=== PATIENT | male | born 1995 | race Caucasian/White ===

== ENCOUNTER 2020-11-27 13:10 | Emergency (ER) | payer MEDICAID, SELFPAY ==
[2020-11-27 13:25] VITALS: BP 118/77; PULSE 107; RESP 16; TEMP 37.1; O2SAT 97; BMI 22.8
--- NOTE | 2020-11-27 13:49 | ED.URI ---
HPI - URI/Sore Throat General Chief Complaint: General Medical Stated Complaint: EAR INFECTION Time Seen by Provider: 11/27/20 13:30 Source: patient Mode of arrival: ambulatory Limitations: no limitations History of Present Illness HPI Narrative: 25-year-old male presenting to the ED with his father with 2 separate complaints the 1st complaint is left ear pain and intermittent headaches for the past 3 days worse today with drainage noted to the left ear. He also is interested in detox. He reports that he normally does heroin approximately 10 bags daily where he sniffs the heroin. He also reports that he occasionally uses Percocet and cocaine when he has money to purchase this. He reports in the past he has used substances although no other substances recently. Denies any SI/HI/auditory or visual hallucinations or thoughts of self injury. Denies any fevers, chills, dizziness, neck pain/stiffness, cough, sore throat, trouble swallowing or breathing, chest pain or shortness of breath, nausea/vomiting/diarrhea or constipation, abdominal pain or any rashes or recent travel or sick contacts. MD elicited complaint: other (Ear pain) Onset (ago): day(s) (Three days) Consistency: constant and progressively worsening Severity: moderate Description of mucous: clear, watery and yellow Able to tolerate fluids by mouth: Yes Exacerbating factors: nothing Relieving factors: nothing Associated symptoms: headache Treatments prior to arrival: none Related Data Previous Rx's Medication Instructions Recorded amoxicillin 875 mg-potassium 1 tab PO BID 10 Days #20 tab 11/27/20 clavulanate 125 mg tablet (Augmentin) ciprofloxacin 0.3 %-dexamethasone 4 drp OTIC (EARS) BID 7 Days #7.5 11/27/20 0.1 % ear drops,suspension ml (Ciprodex) ondansetron HCl 4 mg tablet 4 mg PO Q8H PRN #14 tab 11/27/20 (Zofran) Allergies Allergy/AdvReac Type Severity Reaction Status Date / Time No Known Allergies Allergy Unverified 12/07/19 16:36 [No Known Allergies*] Review of Systems Review of Systems: Constitutional : No Weight loss, No Fever, No Chills, No Night Sweats, No Fatigue, No Malaise ENT/Mouth : Positive left-sided ear pain/drainage, No Hearing loss, No Nasal Congestion, No Sinus Pain, No Hoarseness, No sore throat, No Rhinorrhea, No Swallowing Difficulty Eyes: No Eye Pain, No Swelling, No Redness, No Foreign Body, No Discharge, No Vision Changes Cardiovascular : No Chest Pain, No SOB, No Dyspnea on Exertion, No Orthopnea, No Edema, No Palpitations Respiratory : No Cough, No Sputum, No Wheezing, No Smoke Exposure, No Dyspnea Gastrointestinal : No Nausea, No Vomiting, No Diarrhea, No Constipation, No abdominal Pain, No Hematochezia, No Melena Genitourinary : no irregular bleeding, No Dysuria, No Urinary Frequency, No Hematuria, No Urinary Incontinence, No Urgency, No Flank Pain, No Urinary Flow Changes, No Hesitancy Musculoskeletal : No joint pain, No Myalgias, No Joint Swelling Skin : No Skin Lesions, No rash Neuro : No Weakness, No Numbness, No Paresthesias, No Loss of Consciousness, No Dizziness, No Headache Psych : Positive substance abuse, No Anxiety/Panic, No Depression, No SI/HI/AH/VH, No Social Issues, Heme/Lymph: No Bruising, No Bleeding,No Lymphadenopathy Endocrine : No Polyuria, No Polydipsia, No Temperature Intolerance Yes all other systems are reviewed and are negative [facility] Past Medical History Attestation statement: The following information was validated with the patient. Medical History (Updated 11/27/20 @ 14:53 by PATRICIA Gates) Collapsed lung Opioid abuse Social History Social History Advance Directives: No Advance Directives Information Provided: No Physical Exam Vital Signs: Vital Signs: Last Vital Signs Temp 98.7 F 11/27/20 13:25 Pulse 107 H 11/27/20 13:25 Resp 16 11/27/20 13:25 BP 118/77 11/27/20 13:25 Pulse Ox 97 11/27/20 13:25 Body Mass Index 22.8 vital signs have been reviewed as normal and appeared to be correct. Blood pressure normal. Heart rate tachycardic at 107. Respiration rate normal. Temperature normal. Oxygen saturation normal. Appearance: Alert. Oriented X3. No acute distress. Head: Normal external exam. Normocephalic. Atraumatic. Eyes: PERRLA. EOMI. Conjunctiva and sclera normal. Eyelids normal. ENT: Patient with TTP to tragus and pinna along with erythema/edema and narrowing along with purulent discharge to the external ear canal consistent with otitis externa. Unable to see tympanic membrane. Right external ear canal within normal limits. Right tympanic membrane within normal limits. Pharynx normal. Uvula midline. Moist mucous membranes. No trismus noted. No drooling noted. No muffled voice noted. Neck: Normal inspection. Neck supple. FROM. No adenopathy. Thyroid Normal. No meningeal signs. No neck mass noted. CVS: Normal heart rate and rhythm. Heart sound normal. Pulses normal throughout. No murmurs/rales/gallops. Respiratory: No respiratory distress. Painless inspiration. Breath sounds normal. No wheezes/rales/rhonchi noted. Chest nontender. No accessory muscle usage noted or decreased air movement noted. Abdomen: Soft and nontender. Bowel sounds normal in all 4 quadrants. No distention noted. No organomegaly noted. No visible injury noted. Back: No CVA tenderness. Full range of motion noted. No rashes/lesion/induration/fluctuance or signs of infection noted. Skin: Skin warm and dry. Normal skin color. Normal skin turgor. No rashes/lesions/lacerations noted. Extremities: No lower extremity edema. Extremities exhibit normal range of motion. Extremities nontender. Neuro: Oriented X 3. No motor deficit. No sensory deficit. Reflexes normal. Normal steady gait. No focal neuro deficits noted. Course Course Course Narrative: 14pm 25-year-old male presenting to the ED with complaints of left-sided ear pain/purulent drainage over the past few days worse today. Also requesting detox for sniffing heroin approximately 10 bags daily and intermittently uses Percocets and cocaine as well. Denies any other drug usage. Denies any SI/HI/auditory visual sensations thoughts of self-injury. Patient is noted to have left-sided otitis externa. Right external ear canal within normal limits. Posterior pharynx within normal limits. Lungs CTA. CV RRR. Therefore patient will be treated for otitis externa. Patient is placed in physician observation at this time because the patient needs more time to be evaluated by the care team for possible detox placement. Will continue to monitor. Reevaluation(s) Reevaluation #1: The assistant men's soccer coach Yonathan from the CARE team was working on finding detox placement for the patient although patient felt like he was going into withdrawal despite being given Zofran and Atarax and he left although family still at bedside and both family and patient are still very interested in detox therefore the detox bed search will continue as an outpatient. Time: 15:23 MDM - URI/Sore Throat Medical Records Attestation: I reviewed the patient's medical records. Discharge Plan Discharge Clinical Impression: Otitis externa, Active substance abuse, Desire for detoxification Patient Disposition: Home, Self-Care Instructions: Otitis Externa (ED) Prescriptions: New ondansetron HCl [Zofran] 4 mg tablet 4 mg PO Q8H PRN (Reason: nausea and vomiting) Qty: 14 RF: 0 amoxicillin-pot clavulanate [Augmentin] 875-125 mg tablet 1 tab PO BID 10 Days Qty: 20 RF: 0 ciprofloxacin-dexamethasone [Ciprodex] 0.3-0.1 % drops,suspension 4 drp otic (ears) BID 7 Days Qty: 7.5 RF: 1 Referrals: Physician,Unknown [Primary Care Provider] - 2 days (your pcp) Print Language: Yakut
[2020-11-27] MEDS: Ondansetron ODT 4 MG TAB.RAPDIS TRANSLINGU (14:45)
[2020-11-27] MEDS: Amoxicillin/Potassium Clav 875 MG TABLET PO (14:52)
[2020-11-27] MEDS: hydrOXYzine HCL 50 MG TABLET PO (14:52)
[2020-11-27] MEDS: NeoMYCIN/Polymyxin/HC Otic Sol BOTTLE 4 DROP EAR-LEFT (15:09)
--- NOTE | 2020-11-27 15:34 | MHC.RECOVSUP ---
Recovery Support note: Patient is a 25 year old Palauan speaking male who presented to [facility] ED due to an ear infection. While being evaluated, patient expressed interest in going to ATS for his opioid use disorder. This editorial writer met with patient to discuss recovery supports and treatment options. Patient reports using 10 bags a day nasally and states he is uninsured. Discussed ATS and MOUD with patient. Patient accepted information on [facility] and ATS facilities in [place]. Patient was initially willing to be referred to ATS however left the hospital after referrals were made. Discussed section 35 with patient's uncle. Discussed case with patient's ED provider.
[2020-11-27 15:36] LABS: COVID-19 Test Negative (Negative); IDNOW Serial# 9DD0AD1C
== END 2020-11-27 15:37 | disposition home or self-care (01) ==
PROVIDERS: Physician Assistant Medical; Emergency Provider Emergency Medicine
DX: H60.92 Unspecified otitis externa, left ear (principal); H92.02 Otalgia, left ear; F14.10 Cocaine abuse, uncomplicated; F11.10 Opioid abuse, uncomplicated; Z20.822 Contact with and (suspected) exposure to COVID-19; Z79.899 Other long term (current) drug therapy
CPT/HCPCS: 36415; 87635; 99283

== ENCOUNTER 2020-12-14 04:59 | Emergency (ER) | payer MEDICAID, SELFPAY ==
[2020-12-14 05:27] VITALS: BP 116/72; PULSE 66; RESP 15; TEMP 37; O2SAT 98; BMI 17.4
[2020-12-14 05:35] VITALS: BP 116/72; PULSE 66; RESP 18; TEMP 37; O2SAT 98
[2020-12-14 05:56] LABS: MANUAL DIFF FLAG NO
[2020-12-14 05:57] LABS: Basophils Absolute Auto 0.1 X10*3/uL (0.0-0.2); Basophils Percent Auto 0.5 % (0-2); Eosinophils Absolute Auto 0.2 X10*3/uL (0.0-0.4); Eosinophils Percent Auto 1.4 % (0-4); Hematocrit 45.3 % (42-52); Hemoglobin 15.5 g/dl (14.0-18.0); Imm Gran Abs Auto 0.04 X10*3/uL (0.00-0.03); Imm Gran Pct Auto 0.3 % (0.0-0.4); Lymphocytes Absolute Auto 1.6 X10*3/uL (1.2-4.9); Lymphocytes Percent Auto 12.5 % (20-40); Mean Corpuscular HGB Conc 34.2 g/dl (31.0-36.0); Mean Corpuscular Hemoglobin 30.9 pg (27.0-33.0); Mean Corpuscular Volume 90.2 fL (80-98); Mean Platelet Volume 11.5 fL (9.4-12.4); Monocytes Absolute Auto 0.8 X10*3/uL (0.1-1.2); Monocytes Percent Auto 5.9 % (2-11); Neutrophils Absolute Auto 10.3 X10*3/uL (2.0-8.3); Neutrophils Percent Auto 79.4 % (45-73); Platelet Count 225 X10*3/uL (160-400); Red Blood Count 5.02 X10*6/uL (4.60-5.80); Red Cell Distribution Width 12.2 % (11.0-16.0)
[2020-12-14 06:11] LABS: COVID-19 Test Negative (Negative)
[2020-12-14 06:13] LABS: Alanine Aminotransferase 23 U/L (0-40); Albumin Level 4.9 g/dL (3.5-5.0); Alkaline Phosphatase 74 U/L (39-117); Anion Gap 12 (12-20); Aspartate Amino Transferase 16 U/L (5-37); Bilirubin Total 0.8 mg/dL (0.0-1.0); Blood Urea Nitrogen 13 mg/dL (9-16); Calcium 10.2 mg/dL (8.4-10.2); Carbon Dioxide 26 mmol/L (22-29); Chloride 108 mmol/L (96-108); Creatinine Clr Calc Pharmacy 102.8; Estimated Glomerular Filt Rate > 60; Glucose Random 77 mg/dL (60-115); Sodium 141 mmol/L (135-145); Total Protein 7.6 g/dL (6.5-8.0)
[2020-12-14 07:34] LABS: Appearance Urine CLEAR; Color Urine YELLOW; Glucose Urine UA NEG (NEG); Leukocyte Esterase Urine NEG (NEG); Nitrite Urine NEG (NEG); PH 6.5 (5.0-8.0); UACC Culture Trigger NO; Urine Blood TRACE (NEG); Urine Ketones NEG (NEG); Urine Protein NEG (NEG-TRACE)
[2020-12-14 07:44] VITALS: BP 109/60; PULSE 61; RESP 16; TEMP 37.2; O2SAT 99
[2020-12-14 07:48] LABS: Amphetamine Screen Urine Not Detected (Not Detect); Barbiturates, Urine Not Detected (Not Detect); Benzodiazepines Screen Urine Not Detected (Not Detect); Cannabinoid Screen Urine Not Detected (Not Detect); Cocaine Screen Urine Not Detected (Not Detect); Fentanyl, urine POSITIVE (Not Detect); Opiate Screen Urine Not Detected (Not Detect); Phencyclidine Screen Urine Not Detected (Not Detect)
--- NOTE | 2020-12-14 07:53 | ED.GENADULT ---
HPI - General Adult General Chief complaint: General Medical Stated complaint: Seeking detoh Time Seen by Provider: 12/14/20 07:53 History of Present Illness HPI narrative: Patient is 25 years old with a history of heroin abuse. Presents today wanting detox. Has no suicidal homicidal ideation. Last use was this morning. Patient is from home. No systemic complaints. Related Data Previous Rx's Medication Instructions Recorded amoxicillin 875 mg-potassium 1 tab PO BID 10 Days #20 tab 11/27/20 clavulanate 125 mg tablet (Augmentin) ciprofloxacin 0.3 %-dexamethasone 4 drp OTIC (EARS) BID 7 Days #7.5 11/27/20 0.1 % ear drops,suspension ml (Ciprodex) ondansetron HCl 4 mg tablet 4 mg PO Q8H PRN #14 tab 11/27/20 (Zofran) Allergies Allergy/AdvReac Type Severity Reaction Status Date / Time No Known Allergies Allergy Unverified 12/07/19 16:36 [No Known Allergies*] Review of Systems Review of Systems: No fever no chills no chest pain or shortness of breath and dizziness Yes all other systems are reviewed and are negative [facility] Past Medical History Attestation statement: The following information was validated with the patient. Medical History Collapsed lung Opioid abuse Social History Social History Alcohol intake: current Alcohol intake frequency: a few times a week Patient Tobacco Use Status: Current everyday Tobacco user Smoked in Last 30 Days: Yes Use of substances other than those prescribed or required for medical reasons: Yes Substance Use Type: Heroin Substance Use Frequency: Daily Last Used Substance: Hours (ago) Any prior treatment program specific to substance use: No Advance Directives: No Physical Exam Vital Signs: Vital Signs: Last Vital Signs Temp 99.0 F 12/14/20 07:44 Pulse 61 12/14/20 07:44 Resp 16 12/14/20 07:44 BP 109/60 12/14/20 07:44 Pulse Ox 99 12/14/20 07:44 Body Mass Index 17.4 Appearance: Alert. Oriented X3. No acute distress. Eyes: Pupils equal, round and reactive to light. ENT: Pharynx normal. Neck: Normal inspection. Neck supple. No lymph nodes noted. No crepitus CVS: Normal heart rate and rhythm. Pulses normal. Normal S1 and S2 Respiratory: No respiratory distress. Breath sounds normal. No Wheezing. No rales Abdomen: Soft and nontender. No rigidity. No distention. good BS x4 Skin: Skin warm and dry. Normal skin color. Normal skin turgor. Extremities: No lower extremity edema. Neurovascular intact to all extremities. No Lacerations. No Rash Neuro: Oriented X 3. No motor deficit. No sensory deficit. Moving all extermities. No slurred speech Medical Decision Making MDM Narrative Medical decision making narrative: Well-appearing no acute distress vital signs are normal. Will attempt to get patient additional help for substance abuse coaching. Patient seen by substance abuse coaching. Will look for outpatient detox. Lab Data Result diagrams: 12/14/20 05:51 12/14/20 05:51 Labs: Lab Results 12/14/20 12/14/20 12/14/20 Range/Units 05:43 05:51 05:51 WBC 13.0 H (4.8-10.8) X10*3/uL RBC 5.02 (4.60-5.80) X10*6/uL Hgb 15.5 (14.0-18.0) g/dl Hct 45.3 (42-52) % MCV 90.2 (80-98) fL MCH 30.9 (27.0-33.0) pg MCHC 34.2 (31.0-36.0) g/dl RDW 12.2 (11.0-16.0) % Plt Count 225 (160-400) X10*3/uL MPV 11.5 (9.4-12.4) fL Immature Gran % (Auto) 0.3 (0.0-0.4) % Neut % (Auto) 79.4 H (45-73) % Lymph % (Auto) 12.5 L (20-40) % [facility] % (Auto) 5.9 (2-11) % Eos % (Auto) 1.4 (0-4) % Baso % (Auto) 0.5 (0-2) % Lymph # (Auto) 1.6 (1.2-4.9) X10*3/uL [facility] # (Auto) 0.8 (0.1-1.2) X10*3/uL Eos # (Auto) 0.2 (0.0-0.4) X10*3/uL Baso # (Auto) 0.1 (0.0-0.2) X10*3/uL Abs Immat Gran (auto) 0.04 H (0.00-0.03) X10*3/uL Absolute Neuts (auto) 10.3 H (2.0-8.3) X10*3/uL Absolute Nucleated RBC 0.000 (0.0-0.012) X10*3/uL Nucleated RBC % (auto) 0.0 (0.0-0.2) /100WBC Sodium 141 (135-145) mmol/L Potassium 5.0 (3.3-5.1) mmol/L Chloride 108 (96-108) mmol/L Carbon Dioxide 26 (22-29) mmol/L Anion Gap 12 (12-20) BUN 13 (9-16) mg/dL Creatinine 0.81 (0.5-1.4) mg/dL Estim Creat Clear Calc 102.8 Estimated GFR > 60 Random Glucose 77 (60-115) mg/dL Calcium 10.2 (8.4-10.2) mg/dL Total Bilirubin 0.8 (0.0-1.0) mg/dL AST 16 (5-37) U/L ALT 23 (0-40) U/L Alkaline Phosphatase 74 (39-117) U/L Total Protein 7.6 (6.5-8.0) g/dL Albumin 4.9 (3.5-5.0) g/dL Urine Color Urine Appearance Urine pH (5.0-8.0) Ur Specific Foley (1.005-1.025) Urine Protein (NEG-TRACE) MG/DL Urine Glucose (UA) (NEG) MG/DL Urine Ketones (NEG) MG/DL Urine Blood (NEG) Urine Nitrite (NEG) Ur Leukocyte Esterase (NEG) Urine RBC (0) /HPF Urine WBC (0-4) /HPF Ur Squamous Epith Cells /LPF Urine Bacteria /LPF Urine Opiates Screen (Not Detect) Urine Fentanyl Screen (Not Detect) Ur Barbiturates Screen (Not Detect) Ur Phencyclidine Scrn (Not Detect) Ur Amphetamines Screen (Not Detect) U Benzodiazepines Scrn (Not Detect) Urine Cocaine Screen (Not Detect) U Marijuana (THC) Screen (Not Detect) COVID-19 (HOLDEN) Negative (Negative) COVID-19 Clin Com See Note 12/14/20 12/14/20 Range/Units 07:25 07:25 WBC (4.8-10.8) X10*3/uL RBC (4.60-5.80) X10*6/uL Hgb (14.0-18.0) g/dl Hct (42-52) % MCV (80-98) fL MCH (27.0-33.0) pg MCHC (31.0-36.0) g/dl RDW (11.0-16.0) % Plt Count (160-400) X10*3/uL MPV (9.4-12.4) fL Immature Gran % (Auto) (0.0-0.4) % Neut % (Auto) (45-73) % Lymph % (Auto) (20-40) % [facility] [place] [facility] % (Auto) (2-11) % Eos % (Auto) (0-4) % Baso % (Auto) (0-2) % Lymph # (Auto) (1.2-4.9) X10*3/uL [facility] [place] [facility] # (Auto) (0.1-1.2) X10*3/uL Eos # (Auto) (0.0-0.4) X10*3/uL Baso # (Auto) (0.0-0.2) X10*3/uL Abs Immat Gran (auto) (0.00-0.03) X10*3/uL Absolute Neuts (auto) (2.0-8.3) X10*3/uL Absolute Nucleated RBC (0.0-0.012) X10*3/uL Nucleated RBC % (auto) (0.0-0.2) /100WBC Sodium (135-145) mmol/L Potassium (3.3-5.1) mmol/L Chloride (96-108) mmol/L Carbon Dioxide (22-29) mmol/L Anion Gap (12-20) BUN (9-16) mg/dL Creatinine (0.5-1.4) mg/dL Estim Creat Clear Calc Estimated GFR Random Glucose (60-115) mg/dL Calcium (8.4-10.2) mg/dL Total Bilirubin (0.0-1.0) mg/dL AST (5-37) U/L ALT (0-40) U/L Alkaline Phosphatase (39-117) U/L Total Protein (6.5-8.0) g/dL Albumin (3.5-5.0) g/dL Urine Color YELLOW Urine Appearance CLEAR Urine pH 6.5 (5.0-8.0) Ur Specific Foley 1.010 (1.005-1.025) Urine Protein NEG (NEG-TRACE) MG/DL Urine Glucose (UA) NEG (NEG) MG/DL Urine Ketones NEG (NEG) MG/DL Urine Blood TRACE (NEG) Urine Nitrite NEG (NEG) Ur Leukocyte Esterase NEG (NEG) Urine RBC 1-4 (0) /HPF Urine WBC 0 (0-4) /HPF Ur Squamous Epith Cells NONE /LPF Urine Bacteria NONE /LPF Urine Opiates Screen Not Detected (Not Detect) Urine Fentanyl Screen POSITIVE H (Not Detect) Ur Barbiturates Screen Not Detected (Not Detect) Ur Phencyclidine Scrn Not Detected (Not Detect) Ur Amphetamines Screen Not Detected (Not Detect) U Benzodiazepines Scrn Not Detected (Not Detect) Urine Cocaine Screen Not Detected (Not Detect) U Marijuana (THC) Screen Not Detected (Not Detect) COVID-19 (HOLDEN) (Negative) COVID-19 Clin Com Discharge Plan Discharge Clinical Impression: Opioid abuse Patient Disposition: Home, Self-Care Instructions: Opioid Use Disorder (ED), Polysubstance Abuse (ED) Prescriptions: No Action ondansetron HCl [Zofran] 4 mg tablet 4 mg PO Q8H PRN (Reason: nausea and vomiting) Qty: 14 RF: 0 amoxicillin-pot clavulanate [Augmentin] 875-125 mg tablet 1 tab PO BID 10 Days Qty: 20 RF: 0 ciprofloxacin-dexamethasone [Ciprodex] 0.3-0.1 % drops,suspension 4 drp otic (ears) BID 7 Days Qty: 7.5 RF: 1 Referrals: Physician,None [Primary Care Provider] - 2 days (Please go to detox. Please stop using heroin. Using heroin can kill you.)
[2020-12-14 07:56] LABS: WBC Urine 0 /HPF (0-4)
--- NOTE | 2020-12-14 09:57 | MHC.RECOVSUP ---
Recovery Support note: Patient is a 25 year old Micronesian speaking male who presented to [facility] ED seeking detox. Patient reports using 4-5 bags a day intranasally. Patient is currently uninsured. This ad writer completed an ATS bedsearch and no beds are available at this time. Patient reports he would like to go home and have the facilities contact him directly if a bed is available. This ad writer will continue to search for an ATS bed and will inform patient when one is available. Discussed case with patient's ED provider and plan is for patient to discharge with follow up.
== END 2020-12-14 10:37 | disposition home or self-care (01) ==
PROVIDERS: Emergency Provider Emergency Medicine Emergency Medical Services
DX: F11.10 Opioid abuse, uncomplicated (principal); F17.200 Nicotine dependence, unspecified, uncomplicated; Z20.822 Contact with and (suspected) exposure to COVID-19; Z71.6 Tobacco abuse counseling; Z71.51 Drug abuse counseling and surveillance of drug abuser; Z79.899 Other long term (current) drug therapy
CPT/HCPCS: 36415; 80053; 80307; 81001; 85025; 87635; 99283; 99284

== ENCOUNTER 2021-01-03 12:09 | Emergency (ER) | payer MEDICAID, SELFPAY ==
--- NOTE | 2021-01-03 12:29 | PC.NURSE ---
pt checked in, was called to be triaged within 15 minutes and patient had already left without being seen- pt had notified registration he was leaving.
== END 2021-01-03 12:30 | disposition left against medical advice (07) ==
PROVIDERS: Emergency Provider Emergency Medicine
DX: Z04.9 Encounter for examination and observation for unspecified reason (principal)

== ENCOUNTER 2021-01-03 13:11 | Emergency (ER) | payer MEDICAID, SELFPAY ==
--- NOTE | 2021-01-03 13:19 | ED.OVERDOSE ---
HPI - Overdose General Chief Complaint: ETOH/Substance Use Stated Complaint: withdrawal Time Seen by Provider: 01/03/21 13:18 History of Present Illness HPI Narrative: Patient is a 25-year-old male with a history of heroin abuse. Patient stopped using heroin 2 days ago. Went to the rehab center. Was given Suboxone. Patient mistakenly taken both doses of Suboxone today. They were 8 mg strips he took 2 1. Patient still feels shaky. No fever no chills no cough no congestion positive nausea that has been resolved after paramedics give him a dose of Zofran. Patient from home. Related Data Previous Rx's Medication Instructions Recorded amoxicillin 875 mg-potassium 1 tab PO BID 10 Days #20 tab 11/27/20 clavulanate 125 mg tablet (Augmentin) ciprofloxacin 0.3 %-dexamethasone 4 drp OTIC (EARS) BID 7 Days #7.5 11/27/20 0.1 % ear drops,suspension ml (Ciprodex) ondansetron HCl 4 mg tablet 4 mg PO Q8H PRN #14 tab 11/27/20 (Zofran) clonidine HCl 0.1 mg tablet 0.1 mg PO BID PRN #7 tab 01/03/21 ondansetron 4 mg disintegrating 4 mg PO TID PRN 5 Days #10 tab 01/03/21 tablet Allergies Allergy/AdvReac Type Severity Reaction Status Date / Time No Known Allergies Allergy Verified 01/03/21 13:29 [No Known Allergies*] Review of Systems Review of Systems: No fever no chills Positive shaky Positive weakness Positive nausea earlier All systems reviewed otherwise negative PMFSH Past Medical History Attestation statement: The following information was validated with the patient. Medical History Collapsed lung Opioid abuse Social History Social History Alcohol intake: current Alcohol intake frequency: a few times a week Patient Tobacco Use Status: Current everyday Tobacco user Substance Use Type: Heroin Advance Directives: No Advance Directives Information Provided: Yes Physical Exam Vital Signs: Vital Signs: Last Vital Signs Temp 98.7 F 01/03/21 13:30 Pulse 86 01/03/21 14:04 Resp 18 01/03/21 13:30 BP 156/62 H 01/03/21 14:04 Pulse Ox 98 01/03/21 13:30 Body Mass Index 17.4 Appearance: Alert. Oriented X3. No acute distress. Eyes: Pupils equal, round and reactive to light. ENT: Pharynx normal. Neck: Normal inspection. Neck supple. No lymph nodes noted. No crepitus CVS: Normal heart rate and rhythm. Pulses normal. Normal S1 and S2 Respiratory: No respiratory distress. Breath sounds normal. No Wheezing. No rales Abdomen: Soft and nontender. No rigidity. No distention. good BS x4 Skin: Skin warm and dry. Normal skin color. Normal skin turgor. Extremities: No lower extremity edema. Neurovascular intact to all extremities. No Lacerations. No Rash Neuro: Oriented X 3. No motor deficit. No sensory deficit. Moving all extermities. No slurred speech MDM - Overdose MDM Narrative Medical decision making narrative: Will give a L of IV fluids. Will monitor carefully. Will ask patient to contact family. Currently in stable condition no distress. Discharge Plan Discharge Clinical Impression: Narcotic dependence Patient Disposition: Home, Self-Care Instructions: Narcotic Withdrawal (ED) Prescriptions: New ondansetron 4 mg tablet,disintegrating 4 mg PO TID PRN (Reason: nausea and vomiting) 5 Days Qty: 10 RF: 0 clonidine HCl 0.1 mg tablet 0.1 mg PO BID PRN (Reason: narcotic withdrawal) Qty: 7 RF: 0 No Action ondansetron HCl [Zofran] 4 mg tablet 4 mg PO Q8H PRN (Reason: nausea and vomiting) Qty: 14 RF: 0 amoxicillin-pot clavulanate [Augmentin] 875-125 mg tablet 1 tab PO BID 10 Days Qty: 20 RF: 0 ciprofloxacin-dexamethasone [Ciprodex] 0.3-0.1 % drops,suspension 4 drp otic (ears) BID 7 Days Qty: 7.5 RF: 1 Referrals: Physician,Unknown J [Primary Care Provider] - 2 days (Please go to detox. Please stop using narcotics.)
[2021-01-03 13:23] VITALS: BP 110/76; PULSE 94; O2SAT 98
[2021-01-03 13:30] VITALS: BP 112/71; PULSE 86; RESP 18; TEMP 37.1; O2SAT 98; BMI 17.4
[2021-01-03 14:04] VITALS: BP 156/62; PULSE 86
[2021-01-03] MEDS: cloNIDine HCL 0.1 MG TABLET PO (14:04)
== END 2021-01-03 15:28 | disposition home or self-care (01) ==
PROVIDERS: Emergency Provider Emergency Medicine Emergency Medical Services
DX: F11.23 Opioid dependence with withdrawal (principal); Z79.899 Other long term (current) drug therapy; F17.200 Nicotine dependence, unspecified, uncomplicated; Z71.6 Tobacco abuse counseling
CPT/HCPCS: 99283

== ENCOUNTER 2021-12-02 11:22 | Emergency (ER) | payer MEDICAID, SELFPAY ==
[2021-12-02 12:18] VITALS: BP 140/84; PULSE 87; RESP 18; TEMP 37.2; O2SAT 98; BMI 16.5
== END 2021-12-02 14:42 | disposition left against medical advice (07) ==
PROVIDERS: Emergency Provider Emergency Medicine
DX: K59.00 Constipation, unspecified (principal); F11.20 Opioid dependence, uncomplicated
CPT/HCPCS: 99281